=== PATIENT | male | born 1960 | race Caucasian/White ===

== ENCOUNTER 2022-09-14 08:22 | Day surgery (SDC) | payer MEDICAID ==
[~2022-09-14] VITALS: Ht 180.3 cm; Wt 92.5 kg
[2022-09-14] MEDS ORDERED: methylPREDNISolone ACETATE 40 MG/ML ONE (09:00)
[2022-09-14] MEDS ORDERED: NORMAL SALINE 10 ML VIAL ONE (09:00)
[2022-09-14] MEDS ORDERED: ISOVUE-300 (IOPAMIDOL) 100 ML INFUS..BTL IV ONE (09:00)
[2022-09-14] MEDS ORDERED: LIDOCAINE 2%, 20 ML MDV ONE (09:00)
[2022-09-14] MEDS ORDERED: MIDAZOLAM HCL 5 MG/5 ML VIAL ONE (11:54)
[2022-09-14] MEDS ORDERED: fentaNYL CITRATE/PF 100 MCG/2 ML AMP ONE (11:55)
[2022-09-14] MEDS ORDERED: DIPHENHYDRAMINE INJ 50 MG/ML VIAL ONE (11:55)
[2022-09-14 16:25] VITALS: BP_SYST 99
== END 2022-09-14 13:32 | disposition home or self-care (01) ==
LOC: SDS 08:22 → SMU 08:33 → SDS 13:32
PROVIDERS: ATTEND Internal Medicine
DX: M51.16 Intervertebral disc disorders with radiculopathy, lumbar region (principal); M10.9 Gout, unspecified; E11.9 Type 2 diabetes mellitus without complications; I10 Essential (primary) hypertension; M50.90 Cervical disc disorder, unspecified, unspecified cervical region; M25.562 Pain in left knee; M25.561 Pain in right knee; M25.512 Pain in left shoulder; Z20.822 Contact with and (suspected) exposure to COVID-19; Z79.899 Other long term (current) drug therapy
CPT/HCPCS: 62323; 87426; 36415; J1200; J2001; J1030; J2250; J3010; Q9967; 76000

== ENCOUNTER 2022-11-09 07:17 | Day surgery (SDC) | payer MEDICAID ==
[~2022-11-09] VITALS: Ht 180.3 cm; Wt 90.7 kg
[2022-11-09] MEDS ORDERED: MIDAZOLAM HCL 5 MG/5 ML VIAL ONE (08:43)
[2022-11-09] MEDS ORDERED: fentaNYL CITRATE/PF 100 MCG/2 ML AMP ONE (08:44)
[2022-11-09] MEDS ORDERED: LIDOCAINE 2%, 20 ML MDV ONE (08:44)
[2022-11-09] MEDS ORDERED: IOHEXOL 300 mgI/mL, 50 mL INFUS..BTL IV ONE (08:44)
[2022-11-09] MEDS ORDERED: DEXAMETHASONE SOD PHOSPHATE 4 MG/ML VIAL ONE (08:44)
[2022-11-09] MEDS ORDERED: NORMAL SALINE 10 ML VIAL ONE (08:44)
[2022-11-09] MEDS ORDERED: DIPHENHYDRAMINE INJ 50 MG/ML VIAL ONE (08:45)
[2022-11-09 11:30] VITALS: BP_SYST 113
== END 2022-11-09 11:25 | disposition home or self-care (01) ==
LOC: SDS 07:17 → SMU 07:19 → SDS 11:25
PROVIDERS: ATTEND Internal Medicine
DX: M50.83 Other cervical disc disorders, cervicothoracic region (principal); M50.90 Cervical disc disorder, unspecified, unspecified cervical region; M51.9 Unspecified thoracic, thoracolumbar and lumbosacral intervertebral disc disorder; M25.512 Pain in left shoulder; M25.561 Pain in right knee; I10 Essential (primary) hypertension; E11.9 Type 2 diabetes mellitus without complications; M10.9 Gout, unspecified; Z79.84 Long term (current) use of oral hypoglycemic drugs; Z79.899 Other long term (current) drug therapy; Z20.822 Contact with and (suspected) exposure to COVID-19
CPT/HCPCS: 62321; 82962; J1100; J1200; J2001; J2250; J3010; Q9967; 76000

== ENCOUNTER 2023-03-09 07:19 | Day surgery (SDC) | payer MEDICAID ==
[~2023-03-09] VITALS: Ht 180.3 cm; Wt 95.3 kg
[2023-03-09] MEDS ORDERED: MEPERIDINE 100 MG INJ. 100 MG/ML VIAL ONE (07:46)
[2023-03-09] MEDS ORDERED: SIMETHICONE 40 MG/0.6 ML ML ONE (07:46)
[2023-03-09] MEDS ORDERED: MIDAZOLAM HCL 5 MG/5 ML VIAL ONE (07:47)
[2023-03-09 12:02] VITALS: O2SAT 99
[2023-03-09 15:10] VITALS: BP_SYST 119; PULSE 58; RESP 17; TEMP 97.7
== END 2023-03-09 10:52 | disposition home or self-care (01) ==
LOC: SDS 07:19 → SMU 07:20 → SDS 10:52
PROVIDERS: ATTEND Internal Medicine Gastroenterology
DX: R10.9 Unspecified abdominal pain (principal); K63.5 Polyp of colon; K57.30 Diverticulosis of large intestine without perforation or abscess without bleeding; K64.8 Other hemorrhoids; K52.9 Noninfective gastroenteritis and colitis, unspecified; K63.3 Ulcer of intestine; I10 Essential (primary) hypertension; E11.9 Type 2 diabetes mellitus without complications; E78.5 Hyperlipidemia, unspecified; E03.9 Hypothyroidism, unspecified; Z79.84 Long term (current) use of oral hypoglycemic drugs; Z79.899 Other long term (current) drug therapy
CPT/HCPCS: 45380; 99152; 82962; 88305; 88341; 88342; 99153; G0378; J2250; J2175